=== PATIENT | female | born 1965 | race Caucasian/White ===

== ENCOUNTER 2018-11-19 07:53 | Inpatient (IN) | payer OTHER, MEDICAID ==
[2018-11-19 08:34] LABS: ADD MAN DIFF? NO
[2018-11-19] MEDS: LORAZEPAM 0.5 MG TAB PO (08:34)
[2018-11-19] MEDS: CEFTRIAXONE 1 GM/50 ML (PMX) 50 ML IVPB (08:34)
[2018-11-19] MEDS: IBUPROFEN 600 MG TAB PO (08:34)
[2018-11-19] MEDS: SODIUM CHLORIDE 0.9% 1L BAG IV* (08:35)
[2018-11-19 08:36] LABS: ABNORMAL IP MESSAGE 1; BASOPHILS % 0.3 % (0.0-2.0); EOSINOPHILS % 0.1 % (0.0-7.0); HEMATOCRIT 34.7 % (37.0-47.0); HEMOGLOBIN 10.2 g/dl (12.0-16.0); LYMPHOCYTES # 0.8 10^3/ul (0.8-2.9); LYMPHOCYTES % 10.3 % (15.0-51.0); MEAN CORPUSCULAR HEMOGLOBIN 23.9 pg (29.0-33.0); MEAN CORPUSCULAR HGB CONC 29.4 g/dl (32.0-37.0); MEAN CORPUSCULAR VOLUME 81.5 fl (82.0-101.0); MEAN PLATELET VOLUME 12.4 fl (7.4-10.4); MONOCYTE # 0.6 10^3/ul (0.3-0.9); MONOCYTES % 7.3 % (0.0-11.0); NEUTROPHIL # 6.5 10^3/ul (1.6-7.5); NEUTROPHILS % 81.5 % (39.0-77.0); NUCLEATED RED BLOOD CELLS% 0.3 /100WBC (0.0-0.0); PLATELET COUNT 65 10^3/UL (140-415); RED BLOOD COUNT 4.26 10^6/ul (4.20-5.40); RED CELL DISTRIBUTION WIDTH 16.8 % (11.5-14.5)
[2018-11-19 08:51] LABS: POSITIVE DIFF @See below
[2018-11-19 08:59] LABS: ALANINE AMINOTRANSFERASE 56 IU/L (13-69); ALBUMIN 3.2 g/dl (3.3-4.9); ALBUMIN/GLOBULIN RATIO 0.72; ALKALINE PHOSPHATASE 73 IU/L (42-121); ANION GAP 11 (5-13); ASPARTATE AMINO TRANSFERASE 73 IU/L (15-46); BILIRUBIN,INDIRECT 1.1 mg/dl (0-1.1); BILIRUBIN,TOTAL 1.1 mg/dl (0.2-1.3); BLOOD UREA NITROGEN 11 mg/dl (7-20); C-REACTIVE PROTEIN 2.5 mg/dl (0.0-0.9); CALCIUM 7.3 mg/dl (8.4-10.2); CARBON DIOXIDE 34 mmol/L (21-31); CHLORIDE 95 mmol/L (97-110); Estimated GFR > 60 mL/min (>60); GLUCOSE 116 mg/dl (70-220); LIPASE 149 U/L (23-300); SODIUM 140 mmol/L (135-144); TOTAL PROTEIN 7.6 g/dl (6.1-8.1)
[2018-11-19 09:01] LABS: INR 1.54; PARTIAL THROMBOPLASTIN TIME 33.7 Sec (23.0-35.0); PROTIME 18.6 Sec (11.9-14.9); PT RATIO 1.5
[2018-11-19 09:09] LABS: POTASSIUM 2.4 mmol/L (3.5-5.1)
[2018-11-19 09:11] LABS: TROPONIN-I 0.138 ng/ml (0.000-0.120)
[2018-11-19 09:14] LABS: ADD UMIC YES; UR ASCORBIC ACID NEGATIVE (NEGATIVE); UR BACTERIA FEW /HPF (NONE SEEN); UR BILIRUBIN (Dip) NEGATIVE (NEGATIVE); UR BLOOD (Dip) 2+ mg/dL (NEGATIVE); UR CLARITY CLOUDY (CLEAR); UR COLOR AMBER (YELLOW); UR GLUCOSE (Dip) NEGATIVE (NEGATIVE); UR KETONES (Dip) NEGATIVE (NEGATIVE); UR LEUKOCYTE ESTERASE (Dip) 3+ Leu/ul (NEGATIVE); UR NITRITE (Dip) POSITIVE (NEGATIVE); UR RBC 3 /HPF (0-5); UR SPECIFIC GRAVITY (Dip) 1.012 (1.003-1.030); UR SQUAMOUS EPITHELIAL CELL FEW /HPF (FEW); UR TOTAL PROTEIN (Dip) 1+ mg/dl (NEGATIVE); UR UROBILINOGEN (Dip) NEGATIVE (NEGATIVE); UR WBC > 182 /HPF (0-5)
[2018-11-19 09:38] LABS: ETHANOL < 10.0 mg/dl (0-0)
[2018-11-19] MEDS: MAGNESIUM SULFATE 2 GM/50 ML 50 ML IVPB (09:42)
[2018-11-19] MEDS: POTASSIUM PHOSPHATE 30 MM in SOD CHLORIDE 0.9% 250 ML IVPB (09:42)
[2018-11-19 10:16] LABS: ANISOCYTOSIS 1+ (0-0); BAND NEUTROPHILS #M 1.2 10^3/ul (0.0-0.6); BAND NEUTROPHILS % (M) 16 % (0-4); ERYTHROBLAST% (NRBC) (M) 2 % (0-0); LYMPHOCYTES #M 0.2 10^3/ul (0.8-2.9); LYMPHOCYTES % (M) 3 % (15-51); MICROCYTOSIS 1+ (0-0); MONOCYTE #M 0.4 10^3/ul (0.3-0.9); MONOCYTES % (M) 6 % (0-11); MYELOCYTES #M 0.1 10^3/ul (0.0-0.0); MYELOCYTES % (M) 2 % (0-0); PLATELET ESTIMATE SIG DECREASED; POIKILOCYTOSIS 1+ (0-0); POLYCHROMASIA 3+ (0-0); REACTIVE LYMPHOCYTES #M 0.5 10^3/ul (0.0-0.0); REACTIVE LYMPHOCYTES% (M) 7 % (0-0); SEG NEUT #M 5.4 10^3/ul (1.6-7.5); SEGMENTED NEUTROPHILS (M) % 66 % (39-77); SMUDGE%M 15 % (0-0)
[2018-11-19] MEDS: FUROSEMIDE 40 MG INJ IV (15:52)
[2018-11-19] MEDS: MULTIVITAMINS THERAPEUTIC TAB PO (17:15)
[2018-11-19] MEDS: FOLIC ACID 1 MG TAB PO (17:15)
[2018-11-19] MEDS: THIAMINE 100 MG TAB PO (17:15)
[2018-11-19] MEDS: SOD CHLORIDE 0.9% 1,000 ML IV ×2 (17:16→21:25)
[2018-11-19 17:41] LABS: ANION GAP 9 (5-13); BLOOD UREA NITROGEN 17 mg/dl (7-20); CALCIUM 6.7 mg/dl (8.4-10.2); CARBON DIOXIDE 33 mmol/L (21-31); CHLORIDE 98 mmol/L (97-110); CREATINE KINASE 187 IU/L (23-200); CREATININE 1.12 mg/dl (0.44-1.00); Estimated GFR 51 mL/min (>60); GLUCOSE 105 mg/dl (70-220); SODIUM 140 mmol/L (135-144)
[2018-11-19 17:45] LABS: POTASSIUM 2.5 mmol/L (3.5-5.1)
[2018-11-19 17:53] LABS: CK INDEX 0.8; CK-MB 1.45 ng/ml (0.0-2.4); TROPONIN-I 0.096 ng/ml (0.000-0.120)
[2018-11-19] MEDS ORDERED: MULTIVITAMINS 10 ML, FOLIC ACID 1 MG in SOD CHLORIDE 0.9% 1,000 ML IVPB (18:00)
[2018-11-19] MEDS: FAMOTIDINE 20 MG TAB PO (21:25)
[2018-11-19] MEDS: CHLORDIAZEPOXIDE 25 MG CAP PO (21:25)
[2018-11-19] MEDS: DOCUSATE SODIUM 100 MG CAP PO (21:25)
[2018-11-19] MEDS: ACETAMINOPHEN 325 MG TAB PO (22:15)
[2018-11-19] MEDS: MAGNESIUM SULFATE 1 GM/D5W 100 ML IVPB (22:16)
[2018-11-19 23:32] LABS: CREATINE KINASE 201 IU/L (23-200)
[2018-11-19 23:44] LABS: CK INDEX 0.8; CK-MB 1.59 ng/ml (0.0-2.4); TROPONIN-I 0.081 ng/ml (0.000-0.120)
[2018-11-20 05:29] LABS: ADD MAN DIFF? NO
[2018-11-20 05:38] LABS: WHITE BLOOD COUNT 6.4 10^3/ul (4.8-10.8)
[2018-11-20 05:38] LABS: ABNORMAL IP MESSAGE 1; BASOPHILS % 0.5 % (0.0-2.0); EOSINOPHILS # 0.2 10^3/ul (0.0-0.5); EOSINOPHILS % 3.1 % (0.0-7.0); HEMATOCRIT 30.5 % (37.0-47.0); HEMOGLOBIN 9.2 g/dl (12.0-16.0); LYMPHOCYTES % 15.2 % (15.0-51.0); MEAN CORPUSCULAR HEMOGLOBIN 24.5 pg (29.0-33.0); MEAN CORPUSCULAR HGB CONC 30.2 g/dl (32.0-37.0); MEAN CORPUSCULAR VOLUME 81.3 fl (82.0-101.0); MEAN PLATELET VOLUME 12.3 fl (7.4-10.4); MONOCYTE # 0.6 10^3/ul (0.3-0.9); MONOCYTES % 8.7 % (0.0-11.0); NEUTROPHIL # 4.6 10^3/ul (1.6-7.5); NEUTROPHILS % 72.2 % (39.0-77.0); PLATELET COUNT 53 10^3/UL (140-415); RED BLOOD COUNT 3.75 10^6/ul (4.20-5.40); RED CELL DISTRIBUTION WIDTH 16.9 % (11.5-14.5)
[2018-11-20 05:47] LABS: POSITIVE DIFF @See below
[2018-11-20 05:51] LABS: LACTIC ACID 1.4 mmol/L (0.5-2.0)
[2018-11-20 05:52] LABS: ALANINE AMINOTRANSFERASE 54 IU/L (13-69); ALBUMIN 2.7 g/dl (3.3-4.9); ALBUMIN/GLOBULIN RATIO 0.71; ALKALINE PHOSPHATASE 67 IU/L (42-121); ANION GAP 10 (5-13); ASPARTATE AMINO TRANSFERASE 54 IU/L (15-46); BILIRUBIN,INDIRECT 0.8 mg/dl (0-1.1); BILIRUBIN,TOTAL 0.8 mg/dl (0.2-1.3); BLOOD UREA NITROGEN 19 mg/dl (7-20); CALCIUM 6.6 mg/dl (8.4-10.2); CARBON DIOXIDE 32 mmol/L (21-31); CHLORIDE 97 mmol/L (97-110); CREATININE 1.21 mg/dl (0.44-1.00); Estimated GFR 47 mL/min (>60); GLUCOSE 94 mg/dl (70-220); MAGNESIUM 1.9 mg/dl (1.7-2.5); SODIUM 139 mmol/L (135-144); TOTAL PROTEIN 6.5 g/dl (6.1-8.1)
[2018-11-20 05:54] LABS: IRON 47 ug/dl (35-150)
[2018-11-20 06:00] LABS: POTASSIUM 2.4 mmol/L (3.5-5.1)
[2018-11-20 06:04] LABS: % IRON SATURATION 12 % SAT (22-52); TOTAL IRON BINDING CAPACITY 397 ug/dl (241-421)
[2018-11-20] MEDS: POTASSIUM CHLORIDE (SR) 20 MEQ TAB PO ×2 (06:30→08:29)
[2018-11-20] MEDS ORDERED: CA CHLORIDE 10% 10 ML SYRINGE IV (07:30)
[2018-11-20] MEDS ORDERED: metroNIDAZOLE 500 MG/NS (PMX) 100 ML IVPB (07:30)
[2018-11-20 07:57] LABS: B-TYPE NATRIURETIC PEPTIDE 226 PG/ML (0-125)
[2018-11-20] MEDS: CEFTRIAXONE 1 GM/50 ML (PMX) 50 ML IVPB (08:22)
[2018-11-20] MEDS: ACETAMINOPHEN 325 MG TAB PO (08:28)
[2018-11-20] MEDS: FAMOTIDINE 20 MG TAB PO ×2 (08:29→20:16)
[2018-11-20] MEDS: DOCUSATE SODIUM 100 MG CAP PO ×2 (08:29→20:15)
[2018-11-20] MEDS: MULTIVITAMINS THERAPEUTIC TAB PO (08:29)
[2018-11-20] MEDS: FOLIC ACID 1 MG TAB PO (08:30)
[2018-11-20] MEDS: CHLORDIAZEPOXIDE 25 MG CAP PO (08:30)
[2018-11-20] MEDS: ASPIRIN (EC) 81 MG TAB PO (08:30)
[2018-11-20] MEDS: THIAMINE 100 MG TAB PO (08:30)
[2018-11-20] MEDS: FUROSEMIDE 20 MG INJ IV (08:37)
[2018-11-20] MEDS: SOD CHLORIDE 0.9% IV (09:09)
[2018-11-20] MEDS: CALCIUM CHLORIDE IV (09:09)
[2018-11-20] MEDS: metroNIDAZOLE 500 MG/NS (PMX) 100 ML IVPB ×3 (11:22→21:39)
[2018-11-20] MEDS: MAGNESIUM SULFATE 1 GM/D5W 100 ML IVPB (12:35)
[2018-11-20] MEDS: ATORVASTATIN 20 MG TAB PO (20:16)
[2018-11-21] MEDS: hydrALAzine 20 MG INJ IV (00:13)
[2018-11-21] MEDS: metroNIDAZOLE 500 MG/NS (PMX) 100 ML IVPB ×2 (05:19→15:17)
[2018-11-21 05:50] LABS: ADD MAN DIFF? NO
[2018-11-21 05:58] LABS: WHITE BLOOD COUNT 6.9 10^3/ul (4.8-10.8)
[2018-11-21 05:58] LABS: ABNORMAL IP MESSAGE 1; BASOPHILS % 0.4 % (0.0-2.0); EOSINOPHILS # 0.2 10^3/ul (0.0-0.5); EOSINOPHILS % 2.5 % (0.0-7.0); HEMATOCRIT 31.9 % (37.0-47.0); HEMOGLOBIN 9.6 g/dl (12.0-16.0); LYMPHOCYTES # 1.4 10^3/ul (0.8-2.9); LYMPHOCYTES % 19.9 % (15.0-51.0); MEAN CORPUSCULAR HEMOGLOBIN 24.2 pg (29.0-33.0); MEAN CORPUSCULAR HGB CONC 30.1 g/dl (32.0-37.0); MEAN CORPUSCULAR VOLUME 80.6 fl (82.0-101.0); MONOCYTE # 0.8 10^3/ul (0.3-0.9); MONOCYTES % 12.2 % (0.0-11.0); NEUTROPHIL # 4.4 10^3/ul (1.6-7.5); NEUTROPHILS % 64.6 % (39.0-77.0); PLATELET COUNT 76 10^3/UL (140-415); RED BLOOD COUNT 3.96 10^6/ul (4.20-5.40)
[2018-11-21] MEDS: CEFTRIAXONE 1 GM/50 ML (PMX) 50 ML IVPB (06:36)
[2018-11-21 07:10] LABS: POSITIVE DIFF @See below
[2018-11-21] MEDS: FOLIC ACID 1 MG TAB PO (08:25)
[2018-11-21] MEDS: ASPIRIN (EC) 81 MG TAB PO (08:25)
[2018-11-21] MEDS: FAMOTIDINE 20 MG TAB PO (08:25)
[2018-11-21] MEDS: THIAMINE 100 MG TAB PO (08:25)
[2018-11-21] MEDS: MULTIVITAMINS THERAPEUTIC TAB PO (08:25)
[2018-11-21] MEDS: POTASSIUM CHLORIDE (SR) 20 MEQ TAB PO (08:26)
[2018-11-21] MEDS: DOCUSATE SODIUM 100 MG CAP PO (08:26)
[2018-11-21 10:15] LABS: ALANINE AMINOTRANSFERASE 46 IU/L (13-69); ALBUMIN 2.7 g/dl (3.3-4.9); ALBUMIN/GLOBULIN RATIO 0.65; ALKALINE PHOSPHATASE 65 IU/L (42-121); ANION GAP 12 (5-13); ASPARTATE AMINO TRANSFERASE 42 IU/L (15-46); BILIRUBIN,INDIRECT 0.8 mg/dl (0-1.1); BILIRUBIN,TOTAL 0.8 mg/dl (0.2-1.3); BLOOD UREA NITROGEN 15 mg/dl (7-20); CALCIUM 8.2 mg/dl (8.4-10.2); CARBON DIOXIDE 28 mmol/L (21-31); CHLORIDE 98 mmol/L (97-110); CREATININE 1.13 mg/dl (0.44-1.00); Estimated GFR 51 mL/min (>60); GLUCOSE 92 mg/dl (70-220); MAGNESIUM 1.8 mg/dl (1.7-2.5); PHOSPHORUS 3.5 mg/dl (2.5-4.9); SODIUM 138 mmol/L (135-144); TOTAL PROTEIN 6.8 g/dl (6.1-8.1)
[2018-11-21 10:18] LABS: POTASSIUM 2.5 mmol/L (3.5-5.1)
[2018-11-21] MEDS: POTASSIUM CHLORIDE 20 MEQ POWDER FOR ORAL SOLN PO ×2 (11:22→12:47)
[2018-11-21] MEDS: POTASSIUM CHLORIDE 100 ML IVPB ×2 (11:27→16:31)
[2018-11-21 15:50] LABS: ANION GAP 8 (5-13); BLOOD UREA NITROGEN 14 mg/dl (7-20); CALCIUM 8.3 mg/dl (8.4-10.2); CARBON DIOXIDE 26 mmol/L (21-31); CHLORIDE 104 mmol/L (97-110); CREATININE 1.05 mg/dl (0.44-1.00); Estimated GFR 55 mL/min (>60); GLUCOSE 111 mg/dl (70-220); POTASSIUM 4.3 mmol/L (3.5-5.1); SODIUM 138 mmol/L (135-144)
[2018-11-21] MEDS: MAGNESIUM SULFATE 2 GM/50 ML 50 ML IVPB (16:49)
== END 2018-11-21 19:40 | disposition home or self-care (01) | DRG 871 ==
LOC: E/R 07:53 → 6WM 09:01
PROVIDERS: Family Medicine
DX: A41.9 Sepsis, unspecified organism (principal); I50.41 Acute combined systolic (congestive) and diastolic (congestive) heart failure; N39.0 Urinary tract infection, site not specified; F10.230 Alcohol dependence with withdrawal, uncomplicated; K76.6 Portal hypertension; I13.0 Hypertensive heart and chronic kidney disease with heart failure and stage 1 through stage 4 chronic kidney disease, or unspecified chronic kidney disease; D69.59 Other secondary thrombocytopenia; E87.6 Hypokalemia; D50.9 Iron deficiency anemia, unspecified; F17.210 Nicotine dependence, cigarettes, uncomplicated; I11.0 Hypertensive heart disease with heart failure; K70.30 Alcoholic cirrhosis of liver without ascites; B96.20 Unspecified Escherichia coli [E. coli] as the cause of diseases classified elsewhere; B95.2 Enterococcus as the cause of diseases classified elsewhere; F41.9 Anxiety disorder, unspecified; N18.9 Chronic kidney disease, unspecified; Y90.0 Blood alcohol level of less than 20 mg/100 ml; Z79.82 Long term (current) use of aspirin
CPT/HCPCS: 36415; 71045; 74176; 80048; 80053; 80307; 81001; 82550; 82553; 83540; 83605; 83690; 83735; 83880; 84100; 84484; 85025; 85610; 85651; 85730; 86140; 87040; 87086; 87400; 90686; 93005; 93306; 94660; 96365; 96375; 99291-25